=== PATIENT | male | born 1960 | race Caucasian/White ===

== ENCOUNTER 2024-09-14 13:57 | Inpatient (IN) | payer MEDICARE, MEDICAID ==
[~2024-09-14] VITALS: Ht 170.2 cm; Wt 62.6 kg
[2024-09-14] MEDS ORDERED: MIRT7.5T10 PO (15:23)
[2024-09-14] MEDS ORDERED: HYDR200T4 PO (15:23)
[2024-09-14] MEDS ORDERED: GABA300C PO (15:23)
[2024-09-14] MEDS ORDERED: FOLI0.4T6 PO (15:23)
[2024-09-14] MEDS ORDERED: APIX2.5T PO (15:23)
[2024-09-14] MEDS ORDERED: ATOR40TA PO (15:23)
[2024-09-14] MEDS ORDERED: TAMS-3 PO (15:23)
[2024-09-14] MEDS ORDERED: GABA-536 PO (15:23)
[2024-09-14] MEDS ORDERED: ACETAMINOPHEN/CODEINE 300-30 MG TABLET ONE (15:25)
[2024-09-14 15:47] LABS: BASOPHILS % (AUTO) 0.4 % (0.0-2.0); EOSINOPHILS % (AUTO) 0.2 % (0.0-7.0); HEMATOCRIT 45.7 % (36.7-47.1); HEMOGLOBIN 15.5 g/dL (12.5-16.3); LYMPHOCYTES # (AUTO) 0.6 K/uL (0.8-4.8); LYMPHOCYTES % (AUTO) 7.2 % (20.5-51.5); MEAN CORPUSCULAR HEMOGLOBIN 30.7 uug (23.8-33.4); MEAN CORPUSCULAR HGB CONC 34 g/dL (32.5-36.3); MEAN CORPUSCULAR VOLUME 90.7 fL (73.0-96.2); MONOCYTES # (AUTO) 0.9 K/uL (0.1-1.30); MONOCYTES % (AUTO) 10.7 % (0.0-11.0); NEUTROPHILS # (AUTO) 6.9 K/uL (1.8-8.9); NEUTROPHILS % (AUTO) 81.5 % (38.5-71.5); PLATELET COUNT (AUTO) 138 K/uL (152-348); RED BLOOD CELL COUNT(AUTO) 5.05 MIL/uL (4.06-5.63); RED CELL DISTRIBUTION WIDTH 14.7 % (12.1-16.2); WHITE BLOOD COUNT (AUTO) 8.4 K/uL (3.6-10.2)
[2024-09-14] MEDS: IV NORMAL SALINE 1000 ML BAG IV ONE (15:53)
[2024-09-14] MEDS: ACETAMINOPHEN/CODEINE 300-30 MG TABLET PO ONE (15:54)
[2024-09-14 16:06] LABS: CALCIUM 9.4 mg/dL (8.5-10.1); CARBON DIOXIDE 26 mmol/L (21-32); CHLORIDE 103 mmol/L (98-107); CREATININE 1.5 mg/dL (0.6-1.3); GLUCOSE 83 mg/dL (74-106); POTASSIUM 4.3 mmol/L (3.5-5.1); SODIUM SERUM 142 mmol/L (136-145); UREA NITROGEN, BLOOD 41 mg/dL (7-18)
[2024-09-14 16:09] LABS: DIFFERENTIAL COMMENT 1
[2024-09-14 16:18] LABS: ALANINE AMINOTRANSFERASE 87 U/L (16-63); ALKALINE PHOSPHATASE 71 U/L (50-136); ASPARTATE AMINOTRANSFERASE 239 U/L (15-37); BILIRUBIN,DIRECT 0.2 mg/dL (0.0-0.2); BILIRUBIN,TOTAL 0.7 mg/dL (0.2-1.0); TOTAL PROTEIN, SERUM 8.4 g/dL (6.4-8.2)
[2024-09-14 18:26] LABS: *OCCULT BLOOD STOOL POSITIVE (NEGATIVE)
[2024-09-14] MEDS ORDERED: ONDANSETRON 4 MG/2 ML VIAL IV PRN (18:45)
[2024-09-14] MEDS ORDERED: MAGNESIUM HYDROXIDE 30 ML LIQUID UDC PO PRN (18:45)
[2024-09-14] MEDS ORDERED: ACETAMINOPHEN 325 MG TABLET PO PRN (18:45)
[2024-09-14 19:59] VITALS: BP 124/70; TEMP 97.7; O2SAT 98
[2024-09-14] MEDS: ATORVASTATIN 40 MG TABLET PO SCH (23:05)
[2024-09-14] MEDS: ACIDOPHILUS/BULGARICUS CHEW TAB PO SCH (23:05)
[2024-09-14] MEDS: IV NS 1000 ML 1,000 ML IV PRN (23:15)
[2024-09-14 23:38] LABS: HEMATOCRIT 37.8 % (36.7-47.1); HEMOGLOBIN 12.9 g/dL (12.5-16.3)
[2024-09-15 00:51] LABS: *BLOOD, URINE NEGATIVE (NEGATIVE); *CLARITY,URINE CLEAR (CLEAR); *COLOR,URINE YELLOW (YELLOW); *KETONES,URINE 2+ (NEGATIVE); *PROTEIN,URINE 1+ (NEGATIVE); *UROBILINOGEN,URINE 0.2 E.U./dl (NORMAL); LEUKOCYTE ESTERASE ,URINE NEGATIVE (NEGATIVE); NITRITE, URINE NEGATIVE (NEGATIVE); PH,URINE 5.5 (5.0-8.0); UGLUCOSE NEGATIVE (NEGATIVE)
[2024-09-15 00:56] LABS: *BILIRUBIN,URIN 1+ (NEGATIVE)
[2024-09-15 01:35] LABS: RBC,URINE 0-3 /HPF (0-3)
[2024-09-15 01:47] LABS: BACTERIA,URINE FEW /HPF (NONE SEEN)
[2024-09-15 01:48] LABS: SQUAMOUS EPITHELIAL CELL,UR FEW /HPF (NONE SEEN)
[2024-09-15 05:19] VITALS: BP 126/75; TEMP 98.4; O2SAT 96
[2024-09-15 06:00] VITALS: BP 126/75; TEMP 98.4; O2SAT 96
[2024-09-15 06:58] LABS: BASOPHILS % (AUTO) 0.3 % (0.0-2.0); EOSINOPHILS % (AUTO) 0.5 % (0.0-7.0); HEMATOCRIT 38.9 % (36.7-47.1); HEMOGLOBIN 13.3 g/dL (12.5-16.3); LYMPHOCYTES % (AUTO) 11.9 % (20.5-51.5); MEAN CORPUSCULAR HEMOGLOBIN 30.6 uug (23.8-33.4); MEAN CORPUSCULAR HGB CONC 34 g/dL (32.5-36.3); MEAN CORPUSCULAR VOLUME 89.7 fL (73.0-96.2); MONOCYTES # (AUTO) 0.9 K/uL (0.1-1.30); MONOCYTES % (AUTO) 10.5 % (0.0-11.0); NEUTROPHILS # (AUTO) 6.2 K/uL (1.8-8.9); NEUTROPHILS % (AUTO) 76.8 % (38.5-71.5); PLATELET COUNT (AUTO) 121 K/uL (152-348); RED BLOOD CELL COUNT(AUTO) 4.34 MIL/uL (4.06-5.63); RED CELL DISTRIBUTION WIDTH 14.4 % (12.1-16.2); WHITE BLOOD COUNT (AUTO) 8.1 K/uL (3.6-10.2)
[2024-09-15] MEDS: GABAPENTIN 400 MG CAPSULE PO SCH (07:00)
[2024-09-15 07:15] LABS: DIFFERENTIAL COMMENT 1
[2024-09-15 07:24] LABS: BILIRUBIN,TOTAL 0.5 mg/dL (0.2-1.0); CALCIUM 8.3 mg/dL (8.5-10.1); CREATININE 0.9 mg/dL (0.6-1.3); MAGNESIUM 1.8 mg/dL (1.8-2.4); PHOSPHOROUS 2.1 mg/dL (2.5-4.9); TOTAL PROTEIN, SERUM 6.4 g/dL (6.4-8.2)
[2024-09-15] MEDS: APIXABAN 2.5 MG TABLET PO SCH (09:00)
[2024-09-15] MEDS: TAMSULOSIN HCL 0.4 MG CAP.SR.24H PO SCH (09:00)
[2024-09-15] MEDS ORDERED: FOLIC ACID 0.4 MG TABLET PO SCH (09:00)
[2024-09-15] MEDS: FOLIC ACID 1 MG TABLET PO SCH (09:00)
[2024-09-15] MEDS: HYDROXYCHLOROQUINE SULFATE 200 MG TABLET PO SCH (09:00)
[2024-09-15] MEDS: PANTOPRAZOLE SODIUM 40 MG VIAL IV SCH (09:38)
[2024-09-15 10:53] VITALS: BP 120/59; TEMP 97.7; O2SAT 96
[2024-09-15] MEDS ORDERED: APIX5TAB PO (11:12)
[2024-09-15] MEDS ORDERED: AZEL137S7 EA NOSTRIL (11:12)
[2024-09-15] MEDS ORDERED: DONE5TAB7 PO (11:12)
[2024-09-15] MEDS ORDERED: FLUT16SP16 NS (11:12)
[2024-09-15] MEDS: GABAPENTIN 300 MG CAPSULE PO SCH ×2 (12:42→17:38)
[2024-09-15] MEDS ORDERED: PROP10TA10 PO (12:45)
[2024-09-15] MEDS ORDERED: QUET100T PO (12:45)
[2024-09-15] MEDS ORDERED: CHOL-35 PO (12:45)
[2024-09-15] MEDS ORDERED: PYRI-8 PO (12:45)
[2024-09-15] MEDS ORDERED: CYAN-51 PO (12:45)
[2024-09-15] MEDS ORDERED: FLUT1BLS6 IH (12:45)
[2024-09-15] MEDS ORDERED: RISP2TAB85 PO (12:45)
[2024-09-15] MEDS ORDERED: MULT-225 PO (12:45)
[2024-09-15] MEDS ORDERED: VALB80CA PO (12:45)
[2024-09-15 15:42] VITALS: BP 126/68; TEMP 97.7; O2SAT 97
[2024-09-15] MEDS: PROPRANOLOL HCL 10 MG TABLET PO SCH (17:00)
[2024-09-15] MEDS: CLOTRIMAZOLE 1% CREAM 30 GM TUBE TOP SCH (17:00)
[2024-09-15] MEDS: APIXABAN 5 MG TABLET PO SCH (17:00)
[2024-09-15] MEDS: MIRTAZAPINE 15 MG TABLET PO SCH (17:38)
[2024-09-15] MEDS: MORPHINE SULFATE 2 MG/1 ML DISP.SYRIN IV NR (18:56)
[2024-09-15 19:47] VITALS: BP 134/56; TEMP 98.5; O2SAT 99
[2024-09-15] MEDS: DONEPEZIL 5 MG TABLET PO SCH (20:48)
[2024-09-15] MEDS: QUETIAPINE FUMARATE 100 MG TABLET PO SCH (20:49)
[2024-09-15] MEDS: risperiDONE 2 MG TABLET PO SCH (20:49)
[2024-09-15] MEDS: SODIUM PHOSPHATE MM 15 MMOL in IV NORMAL SALINE 250 ML IV ONE (21:23)
[2024-09-15] MEDS: FLUTICASONE PROP NASAL SPRAY 16 GM BOTTLE NS SCH (21:24)
[2024-09-15] MEDS: REMEDY ESSENTIAL ZINC PASTE 113 GM TP PRN (21:25)
[2024-09-16 05:41] VITALS: BP 101/59; TEMP 97.9; O2SAT 94
[2024-09-16 06:00] VITALS: BP 101/59; TEMP 97.9; O2SAT 98
[2024-09-16 06:59] LABS: BASOPHILS % (AUTO) 0.2 % (0.0-2.0); EOSINOPHILS % (AUTO) 0.4 % (0.0-7.0); HEMATOCRIT 35.2 % (36.7-47.1); HEMOGLOBIN 12.1 g/dL (12.5-16.3); LYMPHOCYTES # (AUTO) 1.4 K/uL (0.8-4.8); LYMPHOCYTES % (AUTO) 15.4 % (20.5-51.5); MEAN CORPUSCULAR HEMOGLOBIN 31.1 uug (23.8-33.4); MEAN CORPUSCULAR HGB CONC 35 g/dL (32.5-36.3); MEAN CORPUSCULAR VOLUME 90.3 fL (73.0-96.2); MONOCYTES % (AUTO) 11.2 % (0.0-11.0); NEUTROPHILS # (AUTO) 6.6 K/uL (1.8-8.9); NEUTROPHILS % (AUTO) 72.8 % (38.5-71.5); PLATELET COUNT (AUTO) 104 K/uL (152-348); RED CELL DISTRIBUTION WIDTH 14.2 % (12.1-16.2); WHITE BLOOD COUNT (AUTO) 9.1 K/uL (3.6-10.2)
[2024-09-16 07:14] LABS: ALBUMIN 2.8 g/dL (3.4-5.0); BILIRUBIN,DIRECT 0.2 mg/dL (0.0-0.2); BILIRUBIN,TOTAL 0.6 mg/dL (0.2-1.0); CALCIUM 8.2 mg/dL (8.5-10.1); CREATININE 0.8 mg/dL (0.6-1.3); PHOSPHOROUS 2.3 mg/dL (2.5-4.9); POTASSIUM 3.9 mmol/L (3.5-5.1); TOTAL PROTEIN, SERUM 5.9 g/dL (6.4-8.2)
[2024-09-16 07:25] LABS: DIFFERENTIAL COMMENT 1
[2024-09-16] MEDS ORDERED: Medication Not On Formulary EA (Multivitamins (Multiple Vitamins) 1 TAB) PO SCH (09:00)
[2024-09-16] MEDS ORDERED: Medication Not On Formulary EA (Pyridoxine Hcl (Vitamin B-6) 50 MG) PO SCH (09:00)
[2024-09-16] MEDS: MULTIVITAMINS,THERAPEUTIC TABLET PO SCH (09:33)
[2024-09-16] MEDS: CHOLECALCIFEROL 1,000 UNIT TABLET PO SCH (09:34)
[2024-09-16] MEDS: HYDROXYCHLOROQUINE SULFATE 200 MG TABLET PO SCH (09:34)
[2024-09-16] MEDS: CYANOCOBALAMIN 1,000 MCG TABLET PO SCH (09:34)
[2024-09-16] MEDS: PYRIDOXINE HCL 100 MG TABLET PO SCH (09:35)
[2024-09-16] MEDS: IV D5 1/2 NS 1000 ML 1,000 ML IV PRN (09:59)
[2024-09-16 11:26] VITALS: BP 108/61; TEMP 98.4; O2SAT 98
[2024-09-16 15:47] VITALS: BP 112/64; TEMP 98.6; O2SAT 96
[2024-09-16] MEDS: NEUTRA PHOS PACKET PO ONE (18:18)
[2024-09-16] MEDS: TAMSULOSIN HCL 0.4 MG CAP.SR.24H PO SCH (20:30)
[2024-09-16 20:59] VITALS: BP 99/55; TEMP 98.5; O2SAT 96
[2024-09-17 05:43] VITALS: BP 111/62; TEMP 98.1; O2SAT 95
[2024-09-17 06:38] LABS: BASOPHILS % (AUTO) 0.2 % (0.0-2.0); EOSINOPHILS # (AUTO) 0.2 K/uL (0.0-0.7); EOSINOPHILS % (AUTO) 2.3 % (0.0-7.0); HEMATOCRIT 35.3 % (36.7-47.1); HEMOGLOBIN 12.2 g/dL (12.5-16.3); LYMPHOCYTES # (AUTO) 1.5 K/uL (0.8-4.8); LYMPHOCYTES % (AUTO) 19.2 % (20.5-51.5); MEAN CORPUSCULAR HEMOGLOBIN 30.5 uug (23.8-33.4); MEAN CORPUSCULAR HGB CONC 34 g/dL (32.5-36.3); MEAN CORPUSCULAR VOLUME 88.4 fL (73.0-96.2); MONOCYTES # (AUTO) 0.9 K/uL (0.1-1.30); MONOCYTES % (AUTO) 11.8 % (0.0-11.0); NEUTROPHILS # (AUTO) 5.2 K/uL (1.8-8.9); NEUTROPHILS % (AUTO) 66.5 % (38.5-71.5); PLATELET COUNT (AUTO) 104 K/uL (152-348); RED CELL DISTRIBUTION WIDTH 14.2 % (12.1-16.2); WHITE BLOOD COUNT (AUTO) 7.8 K/uL (3.6-10.2)
[2024-09-17 06:46] LABS: CALCIUM 8.3 mg/dL (8.5-10.1); CREATININE 0.7 mg/dL (0.6-1.3); POTASSIUM 3.3 mmol/L (3.5-5.1)
[2024-09-17 07:09] LABS: DIFFERENTIAL COMMENT 1
[2024-09-17 08:30] VITALS: BP 119/63; TEMP 98.1; O2SAT 96
[2024-09-17] MEDS: POTASSIUM CHLORIDE 20 MEQ POWDER PACKET PO ONE (10:45)
[2024-09-17 11:43] VITALS: BP 98/58; TEMP 97.9; O2SAT 98
[2024-09-17] MEDS: PIPERACILLIN SODIUM/TAZOBACTAM 3.375 G in IV DEXTROSE 5% 50 ML IV SCH (15:45)
[2024-09-17 15:48] VITALS: BP 103/62; TEMP 98.4; O2SAT 96
[2024-09-17 20:00] VITALS: BP 92/52; TEMP 97.3; O2SAT 96
[2024-09-17] MEDS: HEPARIN SODIUM,PORCINE 5,000 UNITS/ML VIAL SQ SCH (21:44)
[2024-09-17] MEDS: PIPERACILLIN SODIUM/TAZOBACTAM 3.375 G in IV DEXTROSE 5% 100 ML IV SCH (23:57)
[2024-09-18 05:52] VITALS: BP 101/95; TEMP 97.6; O2SAT 95
[2024-09-18] MEDS: PANTOPRAZOLE SODIUM 40 MG TABLET.DR PO SCH (06:06)
[2024-09-18 06:38] LABS: BASOPHILS % (AUTO) 0.5 % (0.0-2.0); EOSINOPHILS # (AUTO) 0.3 K/uL (0.0-0.7); EOSINOPHILS % (AUTO) 3.9 % (0.0-7.0); HEMATOCRIT 35.3 % (36.7-47.1); HEMOGLOBIN 12.4 g/dL (12.5-16.3); LYMPHOCYTES # (AUTO) 1.8 K/uL (0.8-4.8); LYMPHOCYTES % (AUTO) 27.3 % (20.5-51.5); MEAN CORPUSCULAR HEMOGLOBIN 31.3 uug (23.8-33.4); MEAN CORPUSCULAR HGB CONC 35 g/dL (32.5-36.3); MEAN CORPUSCULAR VOLUME 88.6 fL (73.0-96.2); MONOCYTES # (AUTO) 0.7 K/uL (0.1-1.30); MONOCYTES % (AUTO) 10.9 % (0.0-11.0); NEUTROPHILS # (AUTO) 3.7 K/uL (1.8-8.9); NEUTROPHILS % (AUTO) 57.4 % (38.5-71.5); PLATELET COUNT (AUTO) 107 K/uL (152-348); RED BLOOD CELL COUNT(AUTO) 3.98 MIL/uL (4.06-5.63); RED CELL DISTRIBUTION WIDTH 14.5 % (12.1-16.2); WHITE BLOOD COUNT (AUTO) 6.5 K/uL (3.6-10.2)
[2024-09-18 06:44] LABS: CALCIUM 8.2 mg/dL (8.5-10.1); CARBON DIOXIDE 27 mmol/L (21-32); CHLORIDE 110 mmol/L (98-107); CREATININE 0.6 mg/dL (0.6-1.3); GLUCOSE 113 mg/dL (74-106); POTASSIUM 3.3 mmol/L (3.5-5.1); SODIUM SERUM 144 mmol/L (136-145); UREA NITROGEN, BLOOD 7 mg/dL (7-18)
[2024-09-18 06:48] LABS: DIFFERENTIAL COMMENT 1
[2024-09-18] MEDS: POTASSIUM CHLORIDE 20 MEQ TAB.PRT.SR PO ONE (10:59)
[2024-09-18 12:00] VITALS: BP 118/67; TEMP 97.9; O2SAT 96
[2024-09-18 16:00] VITALS: BP 113/74; TEMP 97.5; O2SAT 95
[2024-09-18 20:00] VITALS: BP 125/75; TEMP 98; O2SAT 98
[2024-09-18] MEDS ORDERED: ACIDOPHILUS/BULGARICUS CHEW TAB PO SCH (21:00)
[2024-09-19 05:05] VITALS: BP 121/71; TEMP 97.9; O2SAT 95
[2024-09-19 06:00] VITALS: BP 110/63; TEMP 97.7; O2SAT 100
[2024-09-19 07:00] LABS: BASOPHILS % (AUTO) 0.4 % (0.0-2.0); EOSINOPHILS # (AUTO) 0.2 K/uL (0.0-0.7); EOSINOPHILS % (AUTO) 4.1 % (0.0-7.0); HEMATOCRIT 36.6 % (36.7-47.1); HEMOGLOBIN 12.9 g/dL (12.5-16.3); LYMPHOCYTES # (AUTO) 1.5 K/uL (0.8-4.8); LYMPHOCYTES % (AUTO) 29.8 % (20.5-51.5); MEAN CORPUSCULAR HEMOGLOBIN 31.1 uug (23.8-33.4); MEAN CORPUSCULAR HGB CONC 35 g/dL (32.5-36.3); MEAN CORPUSCULAR VOLUME 88.3 fL (73.0-96.2); MONOCYTES # (AUTO) 0.5 K/uL (0.1-1.30); MONOCYTES % (AUTO) 10.7 % (0.0-11.0); NEUTROPHILS # (AUTO) 2.8 K/uL (1.8-8.9); PLATELET COUNT (AUTO) 121 K/uL (152-348); RED BLOOD CELL COUNT(AUTO) 4.14 MIL/uL (4.06-5.63); RED CELL DISTRIBUTION WIDTH 13.9 % (12.1-16.2)
[2024-09-19 07:04] LABS: DIFFERENTIAL COMMENT 1
[2024-09-19 07:09] LABS: ALBUMIN 2.3 g/dL (3.4-5.0); BILIRUBIN,DIRECT 0.2 mg/dL (0.0-0.2); BILIRUBIN,TOTAL 0.5 mg/dL (0.2-1.0); TOTAL PROTEIN, SERUM 5.8 g/dL (6.4-8.2)
[2024-09-19 07:40] LABS: CALCIUM 8.1 mg/dL (8.5-10.1); CREATININE 0.7 mg/dL (0.6-1.3); POTASSIUM 3.3 mmol/L (3.5-5.1)
[2024-09-19] MEDS: ACIDOPHILUS/BULGARICUS CHEW TAB PO SCH (08:38)
[2024-09-19] MEDS ORDERED: GABA300C PO (08:45)
[2024-09-19] MEDS ORDERED: MULT-24 PO (08:45)
[2024-09-19] MEDS ORDERED: AMOX-430 PO (08:45)
[2024-09-19] MEDS ORDERED: PANT40TA49 PO (08:45)
[2024-09-19] MEDS ORDERED: HYDR200T4 PO (08:45)
[2024-09-19] MEDS ORDERED: FOLI1TAB94 PO (08:45)
[2024-09-19] MEDS ORDERED: TAMS-3 PO (08:45)
[2024-09-19] MEDS ORDERED: PYRI100T18 PO (08:45)
[2024-09-19] MEDS ORDERED: ACID1TAB4 PO (08:45)
[2024-09-19 08:51] VITALS: BP 110/63
[2024-09-19] MEDS: POTASSIUM CHLORIDE 20 MEQ TAB.PRT.SR PO ONE (09:22)
== END 2024-09-19 09:50 | DRG 444 ==
LOC: ER 13:57 → MEDSURG3 19:00
PROVIDERS: ADMIT Nurse Practitioner Acute Care; ATTEND Nurse Practitioner Acute Care
PROC: 05HC33Z Insertion of Infusion Device into Left Basilic Vein, Percutaneous Approach (ICD-10-PCS; principal; 2024-09-14)
DX: K81.0 Acute cholecystitis (principal); N17.0 Acute kidney failure with tubular necrosis; K92.2 Gastrointestinal hemorrhage, unspecified; A08.4 Viral intestinal infection, unspecified; I62.03 Nontraumatic chronic subdural hemorrhage; Z86.718 Personal history of other venous thrombosis and embolism; Z79.01 Long term (current) use of anticoagulants; M32.9 Systemic lupus erythematosus, unspecified; N40.0 Benign prostatic hyperplasia without lower urinary tract symptoms; Z86.72 Personal history of thrombophlebitis; Z79.899 Other long term (current) drug therapy; E87.6 Hypokalemia; E86.0 Dehydration; R55 Syncope and collapse
CPT/HCPCS: 36415; 70450; 71045; 72125; 78445; 83605; 83690; 83735; 84100; 84484; 85018; 85025; 85730; 87040; 87086; A4606; A4663; A6213; A9537; G0378; J1644; J2270; J2470; J2543; J3490; J3535; J7040